=== PATIENT | male | born 1995 | race Caucasian/White ===

== ENCOUNTER 2021-07-06 18:43 | Emergency (ER) | payer OTHER ==
[~2021-07-06] VITALS: Ht 175.3 cm; Wt 96.2 kg
[2021-07-06] MEDS ORDERED: IBU600 MG PO (21:57)
== END 2021-07-06 22:21 | disposition home or self-care (01) ==
LOC: ED 18:43
DX: J02.9 Acute pharyngitis, unspecified (principal)
CPT/HCPCS: 87081; 99283